=== PATIENT | male | born 1990 | race African-American/Black ===

== ENCOUNTER 2018-03-26 23:12 | Emergency (ER) | payer OTHER ==
[2018-03-27] MEDS ORDERED: Tetan/Diph/Pertus SYR(Tdap)* 0.5 ML SYR(BOOSTRIX) use SYR IM ONE (00:05)
[2018-03-27] MEDS ORDERED: Lidocaine 2% 10 ML* VIAL INJ ONE (00:45)
[2018-03-27] MEDS ORDERED: Lidocaine 2% PF * 5 ML VIAL ONE (00:50)
[2018-03-27] MEDS ORDERED: Cephalexin CAP* 500 MG PO ONE (02:27)
--- NOTE | 2018-03-27 02:50 | ED ---
Laceration/Wound HPI - HPI Summary HPI Summary: Patient from halfway complains of laceration to right cheek extending into right side neck. Tetanus status unknown. Bleeding controlled. Medical history is none. - History of Current Complaint Stated Complaint: FACIAL LAC Time Seen by Provider: 03/27/18 00:02 Hx Obtained From: Patient Onset/Duration: Sudden Onset Aggravating: Nothing Alleviating: Nothing Onset Severity: Moderate Current Severity: Moderate Pain Intensity: 7 Pain Scale Used: 0-10 Numeric Associated Signs & Symptoms: Negative - Allergy/Home Medications Allergies/Adverse Reactions: Allergies Allergy/AdvReac Type Severity Reaction Status Date / Time No Known Allergies Allergy Verified 03/26/18 23:24 Home Medications: Home Medications NK [No Home Medications Reported] 03/27/18 [History Confirmed 03/27/18] PMH/Surg Hx/FS Hx/Imm Hx Endocrine/Hematology History: Denies: Hx Anticoagulant Therapy Cardiovascular History: Denies: Hx Cardiac Arrest History: Denies: Hx Dialysis Neurological History: Denies: Hx CVA Infectious Disease History: Unable to Obtain/Confirm Infectious Disease History: Denies: Traveled Outside the [place] in Last 30 Days - Social History Alcohol Use: None Substance Use Type: Reports: None Smoking Status (MU): Never Smoked Tobacco Review of Systems Constitutional: Negative Eyes: Negative ENT: Negative Cardiovascular: Negative Respiratory: Negative Gastrointestinal: Negative Genitourinary: Negative Musculoskeletal: Negative Skin: Other Neurological: Negative Psychological: Normal All Other Systems Reviewed And Are Negative: Yes Physical Exam - Summary Physical Exam Summary: Laceration to right cheek and right side neck superficial does not penetrate into oral cavity. No involvement of blood vessels of right sided neck. Triage Information Reviewed: Yes Vital Signs On Initial Exam: Initial Vitals Temp Pulse Resp BP Pulse Ox 97.7 F 78 16 127/77 98 03/26/18 23:20 03/26/18 23:20 03/26/18 23:20 03/26/18 23:20 03/26/18 23:20 Vital Signs Reviewed: Yes Appearance: Positive: Well-Appearing Skin: Positive: Warm Head/Face: Positive: Normal Head/Face Inspection Eyes: Positive: Normal ENT: Positive: Normal ENT inspection Neck: Positive: Supple Respiratory/Lung Sounds: Positive: Clear to Auscultation Cardiovascular: Positive: Normal Abdomen Description: Positive: Nontender Musculoskeletal: Positive: Normal Neurological: Positive: Normal Psychiatric: Positive: Normal AVPU Assessment: Alert - Lynn Coma Scale Best Eye Response: 4 - Spontaneous Best Motor Response: 6 - Obeys Commands Best Verbal Response: 5 - Oriented Coma Scale Total: 15 Procedures - Laceration/Wound Repair 1 Location: face Description: Irregular Anesthesia: Local, 2.0% Length, Depth and Shape: 16cm x .5 cm Betadine Prep?: Yes Irrigated w/ Saline (ccs): 200 Laceration/Wound Explored: clean Debridement: minimal Number of Sutures: 38 - 6.0 ethilon Layer Closure?: No Sterile Dressing Applied?: No Diagnostics - Vital Signs Vital Signs Temp Pulse Resp BP Pulse Ox 03/26/18 23:20 97.7 F 78 16 127/77 98 - Laboratory Lab Statement: Any lab studies that have been ordered have been reviewed, and results considered in the medical decision making process. Laceration Repair Course/Dx - Course Course Of Treatment: Patient from halfway complains of laceration to right cheek extending into right side neck. Tetanus status unknown. Bleeding controlled. Medical history is none. Physical exam:Laceration to right cheek and right side neck superficial does not penetrate into oral cavity. No involvement of blood vessels of right sided neck. Unsutured. Patient started on Keflex 500 mg by mouth here in the ED. Tetanus booster given. - Clinical Impression Provider Diagnoses: Laceration Discharge - Sign-Out/Discharge Documenting (check all that apply): Patient Departure - Discharge Plan Condition: Stable Disposition: HOME Patient Education Materials: Care For Your Stitches (ED), Laceration (ED), Facial Laceration (ED) Referrals: Surya RILEY,Klever Hooker [Primary Care Provider] - Additional Instructions: Sutures out in 5 days. Take Keflex 500 mg by mouth 3 times a day for 7 days. May wash wound with warm running water and soap after 5 hours. Do not submerge. Return to the ED for any new or worsening symptoms. - Billing Disposition and Condition Condition: STABLE Disposition: Home
[2018-03-27 03:09] VITALS: BP 118/66
== END 2018-03-27 03:08 | disposition home or self-care (01) ==
LOC: ED 23:12
DX: S01.411A Laceration without foreign body of right cheek and temporomandibular area, initial encounter (principal); X58.XXXA Exposure to other specified factors, initial encounter; Y92.149 Unspecified place in prison as the place of occurrence of the external cause; Z23 Encounter for immunization
CPT/HCPCS: 12016; 90471; 90715; 99282; A9270-GY